=== PATIENT | female | born 1990 | race Caucasian/White ===

== ENCOUNTER 2017-04-02 09:54 | Observation (INO) | payer MEDICAID, OTHER ==
[2017-04-02 09:54] VITALS: BMI 25.4
[2017-04-02] MEDS ORDERED: Sodium Chloride 0.9% 1,000 ML IV STA (10:15)
--- NOTE | 2017-04-02 10:20 | ED PDOC ---
Arrival/HPI - General Chief Complaint: Female Genitourinary Time Seen by Provider: 04/02/17 09:56 Historian: Patient - History of Present Illness Narrative History of Present Illness (Text): 04/02/17 10:16 26yr old female presents today with sudden onset of severe sharp stabbing llq abdominal pain radiating to the back and left groin. pt c/o nausea. no vomiting. + diarrhea. no cp or sob. pt c/o dysuria, denies urinary frequency. pt states she had fevers 2 days ago. pt states she has hx of kidney stones in the past with similar symptoms. no medication taken for pain. Time/Duration: Other (6am) Symptom Onset: Sudden Symptom Course: Unchanged Quality: Stabbing Severity Level: Severe Past Medical History - Provider Review Nursing Documentation Reviewed: Yes - Travel History Have you recently traveled outside [place] w/in the past 3 mons?: No - Infectious Disease Hx of Infectious Diseases: None - Tetanus Immunization Tetanus Immunization: Unknown - HEENT Other/Comment: throat infection - Renal Hx Kidney Stones: Yes - Psychiatric Hx Psychophysiologic Disorder: No Hx Substance Use: No - Anesthesia Hx Anesthesia: No Hx Anesthesia Reactions: No Hx Malignant Hyperthermia: No Family/Social History - Physician Review Nursing Documentation Reviewed: Yes Family/Social History: Unknown Family HX Smoking Status: Never Smoked Hx Alcohol Use: No Hx Substance Use: No Allergies/Home Meds Allergies/Adverse Reactions: Allergies No Known Allergies Allergy (Verified 04/02/17 10:06) Home Medications: Home Meds Medication Instructions Recorded Confirmed Amoxicillin/Potassium Clav 1 tab PO TID 04/02/17 04/02/17 [Amoxicillin/Clavulanate Potassium 875 mg-125 ] Ibuprofen [Motrin Tab] 800 mg PO TID 04/02/17 04/02/17 Review of Systems - Review of Systems Constitutional: Fevers. absent: Fatigue Respiratory: absent: SOB, Cough Cardiovascular: absent: Chest Pain, Palpitations Gastrointestinal: Abdominal Pain, Diarrhea, Nausea. absent: Vomiting Genitourinary Female: Dysuria. absent: Frequency, Hematuria, Vaginal Bleeding, Vaginal Discharge Musculoskeletal: Back Pain. absent: Arthralgias, Neck Pain Skin: absent: Rash, Pruritis Neurological: absent: Headache, Dizziness Psychiatric: absent: Anxiety, Depression Physical Exam Vital Signs Reviewed: Yes Vital Signs Temp Pulse Resp BP Pulse Ox 04/02/17 13:10 69 18 110/78 99 04/02/17 12:23 76 18 108/76 99 04/02/17 11:14 79 18 105/71 99 04/02/17 10:00 98.4 F 85 19 107/75 99 Temperature: Afebrile Blood Pressure: Normal Pulse: Regular Respiratory Rate: Normal Appearance: Positive for: Well-Appearing, Non-Toxic, Comfortable Pain Distress: None Mental Status: Positive for: Alert and Oriented X 3 - Systems Exam Head: Present: Atraumatic Mouth: Present: Moist Mucous Membranes Neck: Present: Normal Range of Motion Respiratory/Chest: Present: Clear to Auscultation, Good Air Exchange. No: Respiratory Distress, Accessory Muscle Use Cardiovascular: Present: Regular Rate and Rhythm, Normal S1, S2. No: Murmurs Abdomen: Present: Tenderness (+ suprapubic and LLQ abd tenderness), Normal Bowel Sounds, Guarding (volunatary guarding). No: Distention, Peritoneal Signs , Rebound Genitourinary/Pelvic Exam: Present: Normal External Genitalia, Cervical os Closed, Other (chaparoned by Frida merlos RN). No: Vaginal Discharge, Vaginal Bleeding, Vaginal Lesions, Adenexal Tenderness, Adenexal Mass, Cervical Motion Tendernes, Odor Back: Present: Normal Inspection. No: CVA Tenderness, Midline Tenderness, Paraspinal Tenderness Upper Extremity: Present: Normal ROM Lower Extremity: Present: Normal ROM Neurological: Present: GCS=15, Speech Normal Skin: Present: Warm, Dry, Normal Color. No: Rashes Psychiatric: Present: Alert, Oriented x 3 Medical Decision Making ED Course and Treatment: 04/02/17 10:18 Patient is nontoxic well appearing with stable vital signs presenting with severe llq abdominal pain radiating to left flank and groin NS IV BOLUS TORADOL IV ZOFRAN IV CBC wnl CMP wnl Lipase wnl Urinalysis + blood, + leukocytes, CT abd/pelvis; FINDINGS: LOWER THORAX: Unremarkable. LIVER: Unremarkable. No gross lesion or ductal dilatation. GALLBLADDER AND BILE DUCTS: Unremarkable. PANCREAS: Unremarkable. No gross lesion or ductal dilatation. SPLEEN: Unremarkable. ADRENALS: Unremarkable. No mass. KIDNEYS AND URETERS: Unremarkable. No hydronephrosis. No solid mass. VASCULATURE: Unremarkable. No aortic aneurysm. BOWEL: Unremarkable. No obstruction. No gross mural thickening. APPENDIX: Unremarkable. Normal appendix. PERITONEUM: Unremarkable. No free fluid. No free air. LYMPH NODES: Unremarkable. No enlarged lymph nodes. BLADDER: Unremarkable. REPRODUCTIVE: Left ovarian cyst. No evidence of recent cyst rupture. No fluid in the cul-de- sac BONES: No acute fracture. OTHER FINDINGS: None. IMPRESSION: No acute findings. No evidence of urolithiasis Ultrasound FINDINGS: UTERUS: Measures 3.3 x 7.1 cm. Normal in size and appearance. No fibroid or other mass lesion seen. ENDOMETRIUM: Measures 3.9 mm in diameter. Cough No ultrasound findings to suggest gestational sac, fluid, debris, mass or polyp or other pathologic process within the endometrium. CERVIX: No cervical abnormality identified. Closed cervix 3.4 cm in length. RIGHT OVARY: Measures 1.5 x 2.1 cm. No solid mass. Normal flow. LEFT OVARY: Measures 2.3 x 3.1. Cm. No solid mass. Normal flow. Complex cyst 2.1 x 2.8 cm. Mildly thickened wall and there is debris within the cysts. FREE FLUID: No significant free fluid noted. OTHER FINDINGS: None. IMPRESSION: Left adnexal cyst 2.1 x 2.8 cm. Mildly thickened wall and debris identified. Normal flow to both adnexa. Unremarkable uterus. Patient reassessment:pt feeling better after medications; vitals stable. will send urine culture; pt is currently on augmentin for throat infection. Discussed all results with patient in depth advised f/u with pmd and [facility] within the next 2 days. advised return if symptoms worsen,persist or if new symptoms develop. Impression: Abdominal pain, ovarian cyst, hematuria Motrin every 6 hours as needed for pain Continue augmentin as prescribed. Follow up with primary care physician within the next 2 days Follow up with the [facility] within the next 2 days. Follow up with the Urologist within the next 2 days. Return immediately if symptoms worsen persist or if new symptoms develop: High fevers, increasing pain, vomiting, diarrhea or any other concerning symptoms develop - Medication Orders Current Medication Orders: Discontinued Medications Sodium Chloride (Sodium Chloride 0.9%) 1,000 mls @ 999 mls/hr IV .Q1H1M STA Stop: 04/02/17 11:15 Last Admin: 04/02/17 10:30 Dose: 999 mls/hr Ketorolac Tromethamine (Toradol) 30 mg IVP STAT STA Stop: 04/02/17 10:22 Last Admin: 04/02/17 10:39 Dose: 30 mg Ondansetron HCl (Zofran Inj) 4 mg IVP STAT STA Stop: 04/02/17 10:22 Last Admin: 04/02/17 10:39 Dose: 4 mg ED OBSERVATION Discharge: Yes Date of observation admission: 04/02/17 Time of observation admission: 10:15 - Observation admission statement Patient is being placed in observation because:: abdominal pain - Goals of Observation Goals of observation are:: improvement in abdominal pain. - Progress Note Progress Note: 04/02/17 12:00 pt feeling better after medications; vitals stable. 04/02/17 13:17 pt non toxic well appearing; no distress. feeling better. pain resolved. will d/ c home to f/u with [facility], urologist, and PMD. Disposition/Present on Arrival - Present on Arrival Any Indicators Present on Arrival: No History of DVT/PE: No History of Uncontrolled Diabetes: No Urinary Catheter: No History of Decub. Ulcer: No History Surgical Site Infection Following: None - Disposition Have Diagnosis and Disposition been Completed?: Yes Diagnosis: Abdominal pain, Ovarian cyst, Hematuria Disposition: HOME/ ROUTINE Disposition Time: 13:18 Patient Plan: Discharge Condition: GOOD
[2017-04-02 10:30] VITALS: TEMP 98.4; O2SAT 99
[2017-04-02 10:31] LABS: URINE APPEARANCE SLIGHT-CLOUDY (CLEAR); URINE BILIRUBIN NEGATIVE (NEGATIVE); URINE BLOOD LARGE (NEGATIVE); URINE COLOR YELLOW (YELLOW); URINE GLUCOSE (UA) NEGATIVE (NEGATIVE); URINE KETONE NEGATIVE (NEGATIVE); URINE LEUKOCYTE ESTERASE SMALL Leu/uL (NEGATIVE); URINE PROTEIN TRACE mg/dL (<30 mg/dL); URINE UROBILINOGEN 0.2 E.U./dL (<1 E.U./dL)
[2017-04-02 10:38] LABS: URINE AMORPHOUS SEDIMENT SMALL; URINE RBC 25 - 30 /hpf (0-2)
[2017-04-02 10:39] LABS: ADD MANUAL DIFF? NO
[2017-04-02 10:43] LABS: BASO # 0.01 K/mm3 (0.0-2.0); BASO % 0.1 % (0.0-3.0); EOS % 0.5 % (1.5-5.0); GRAN # 4.76 (1.4-6.5); HEMATOCRIT 35.2 % (36.0-48.0); LYMPH # 2.7 (1.2-3.4); MEAN CELL VOLUME 70.1 fL (80.0-105.0); MEAN CORPUSCULAR HEMOGLOBIN 23.3 pg (25.0-35.0); MEAN CORPUSCULAR HGB CONC 33.2 g/dl (31.0-37.0); MEAN PLATELET VOLUME 10.9 fl (7.0-11.0); MONO # 0.5 (0.1-0.6); MONO % 6.4 % (1.0-6.0); PLATELET COUNT 165 10^3/uL (120.0-450.0); RED CELL DISTRIBUTION WIDTH 14.7 % (11.5-14.5); WHITE BLOOD COUNT 8.1 10^3/ul (4.5-11.0)
[2017-04-02 10:54] LABS: ALB/GLOB RATIO 1.2 (1.1-1.8); ALKALINE PHOSPHATASE 54 U/L (38-133); ALT/SGPT 24 U/L (7-56); AST/SGOT 22 U/L (15-39); BILIRUBIN,TOTAL 0.3 mg/dL (0.2-1.3); BLOOD UREA NITROGEN 14 mg/dL (7-21); CALCIUM 9.1 mg/dL (8.4-10.5); CARBON DIOXIDE 28 mmol/L (21-33); CHLORIDE 105 mmol/L (98-107); GFR AFRICAN-AMERICAN > 60; GLUCOSE,RANDOM 82 mg/dL (70-110); LIPASE 92 U/L (23-300); POTASSIUM 4.3 mmol/L (3.6-5.0); SODIUM 140 mmol/L (132-148); TOTAL PROTEIN 7.6 g/dL (5.8-8.3)
--- NOTE | 2017-04-02 11:06 | CT ---
PROCEDURE: CT Abdomen and Pelvis without intravenous contrast HISTORY: ABDOMINAL PAIN/left flank pain COMPARISON: 01/21/2015 TECHNIQUE: Without contrast. Contrast Dose: Radiation dose: Total exam DLP = 302 mGy-cm. This CT exam was performed using one or more of the following dose reduction techniques: Automated exposure control, adjustment of the mA and/or kV according to patient size, and/or use of iterative reconstruction technique. FINDINGS: LOWER THORAX: Unremarkable. LIVER: Unremarkable. No gross lesion or ductal dilatation. GALLBLADDER AND BILE DUCTS: Unremarkable. PANCREAS: Unremarkable. No gross lesion or ductal dilatation. SPLEEN: Unremarkable. ADRENALS: Unremarkable. No mass. KIDNEYS AND URETERS: Unremarkable. No hydronephrosis. No solid mass. VASCULATURE: Unremarkable. No aortic aneurysm. BOWEL: Unremarkable. No obstruction. No gross mural thickening. APPENDIX: Unremarkable. Normal appendix. PERITONEUM: Unremarkable. No free fluid. No free air. LYMPH NODES: Unremarkable. No enlarged lymph nodes. BLADDER: Unremarkable. REPRODUCTIVE: Left ovarian cyst. No evidence of recent cyst rupture. No fluid in the cul-de-sac BONES: No acute fracture. OTHER FINDINGS: None. IMPRESSION: No acute findings. No evidence of urolithiasis
[2017-04-02 11:14] VITALS: RESP 18
--- NOTE | 2017-04-02 12:39 | US ---
HISTORY: Left-sided abdominal pain. Ovarian cyst. LMP 13 Mar 2017. COMPARISON: April 02, 2017. CT abdomen and pelvis. None available. TECHNIQUE: Transvaginal only. Real -time technique with 2D, duplex and color Doppler FINDINGS: UTERUS: Measures 3.3 x 7.1 cm. Normal in size and appearance. No fibroid or other mass lesion seen. ENDOMETRIUM: Measures 3.9 mm in diameter. Cough No ultrasound findings to suggest gestational sac, fluid, debris, mass or polyp or other pathologic process within the endometrium. CERVIX: No cervical abnormality identified. Closed cervix 3.4 cm in length. RIGHT OVARY: Measures 1.5 x 2.1 cm. No solid mass. Normal flow. LEFT OVARY: Measures 2.3 x 3.1. Cm. No solid mass. Normal flow. Complex cyst 2.1 x 2.8 cm. Mildly thickened wall and there is debris within the cysts. FREE FLUID: No significant free fluid noted. OTHER FINDINGS: None. IMPRESSION: Left adnexal cyst 2.1 x 2.8 cm. Mildly thickened wall and debris identified. Normal flow to both adnexa. Unremarkable uterus.
[2017-04-02 13:10] VITALS: BP 110/78; PULSE 69
== END 2017-04-02 13:17 | disposition home or self-care (01) ==
LOC: ED 09:54 → EROBSV 10:15
PROVIDERS: ADMIT Emergency Medicine; ATTEND Emergency Medicine
DX: R31.9 Hematuria, unspecified (principal); R10.32 Left lower quadrant pain; N83.202 Unspecified ovarian cyst, left side
CPT/HCPCS: 74176; 76830; 80053; 81001; 83690; 85025; 87086; 96361; 96374; 96375; 99285; G0378; J1885; J2405; J7040